=== PATIENT | male | born 1965 | race Caucasian/White ===

== ENCOUNTER 2016-10-22 17:26 | Inpatient (IN) | payer SELFPAY ==
[~2016-10-22] VITALS: Ht 180.3 cm; Wt 90.3 kg
[2016-10-22] MEDS ORDERED: FUROSEMIDE 40 MG/4 ML VIAL ONE (17:42)
[2016-10-22] MEDS ORDERED: NITROGLYCERIN PACKET 1 GM PACKET ONE ×2 (17:42)
[2016-10-22] MEDS ORDERED: ASPIRIN 325 MG TABLET ONE (17:42)
[2016-10-22 17:59] LABS: BASOPHILS % (AUTO) 0.3 % (0.0-2.0); DIFF TOTAL % 100 %; EOSINOPHILS % (AUTO) 0.2 % (0.0-6.0); HEMATOCRIT 37 % (39-51); HEMOGLOBIN 11.6 g/dL (13.5-17.5); LYMPHOCYTES # (AUTO) 1.3 /CMM (0.8-4.8); LYMPHOCYTES % (AUTO) 16.8 % (20.0-44.0); MEAN CORPUSCULAR HEMOGLOBIN 27 PG (26.0-33.0); MEAN CORPUSCULAR HGB CONC 31 g/dl (31.0-36.0); MEAN CORPUSCULAR VOLUME 87 fL (80-96); MONOCYTES # (AUTO) 0.8 /CMM (0.1-1.30); MONOCYTES % (AUTO) 10.4 % (2.0-12.0); NEUTROPHILS # (AUTO) 5.5 /CMM (1.8-8.9); NEUTROPHILS % (AUTO) 72.3 % (43.0-81.0); PLATELET COUNT (AUTO) 328 /CMM (150-450); RED BLOOD CELL COUNT(AUTO) 4.27 MIL/uL (4.5-6.0); WHITE BLOOD COUNT (AUTO) 7.7 K/uL (4.3-11.0)
[2016-10-22] MEDS ORDERED: ASPIRIN 325 MG TABLET PO ONE (18:00)
[2016-10-22] MEDS ORDERED: NITROGLYCERIN PACKET 1 GM PACKET TD ONE (18:00)
[2016-10-22] MEDS ORDERED: FUROSEMIDE 40 MG/4 ML VIAL IV ONE (18:00)
[2016-10-22 18:09] LABS: CALCIUM, SERUM 8.6 mg/dL (8.5-10.1); CREATININE 1.5 mg/dL (0.6-1.3); POTASSIUM 4.6 mmol/L (3.5-5.1)
[2016-10-22 18:17] LABS: TROPONIN I 0.129 ng/mL (0.00-0.056)
[2016-10-22 18:20] LABS: INR 1.24 (0.87-1.13); PROTHROMBIN TIME 13.4 SECS (9.5-12.7)
[2016-10-22 18:23] LABS: ALBUMIN 2.7 g/dL (3.4-5.0); BILIRUBIN,DIRECT 0.7 mg/dL (0.0-0.2); INDIRECT BILIRUBIN 0.3 mg/dL (0.0-1.1); TOTAL PROTEIN, SERUM 7.7 g/dL (6.4-8.2)
[2016-10-22] MEDS ORDERED: VANCOMYCIN 1 GM in IV D5W 250 ML IV ONE ×2 (18:30→19:30)
[2016-10-22] MEDS ORDERED: CEFEPIME 1 GM VIAL IV ONE (18:30)
[2016-10-22] MEDS ORDERED: CEFEPIME 2 GM in IV D5W 100 ML IV ONE (19:00)
[2016-10-22 19:24] LABS: LACTIC ACID 2.1 mmol/L (0.4-2.0)
[2016-10-22] MEDS: IPRATROPIUM NEB FS 0.5 MG/2.5 ML AMPUL.NEB NEB SCH (19:30)
[2016-10-22] MEDS ORDERED: ONDANSETRON HCL/PF 4 MG/2 ML VIAL IVP PRN (19:30)
[2016-10-22] MEDS: ALBUTEROL FS 2.5 MG/0.5 ML VIAL.NEB NEB SCH (19:30)
[2016-10-22] MEDS ORDERED: ACETAMINOPHEN 325 MG TABLET PO PRN ×2 (19:30)
[2016-10-22] MEDS: FUROSEMIDE 40 MG/4 ML VIAL IV SCH (19:30)
[2016-10-22 19:31] LABS: *LACTIC ACID REFLEX FLAG YES
[2016-10-22 19:37] LABS: IRON, SERUM 93 ug/dl (50-175); PERCENT SATURATION 23 % (14-33); TOTAL IRON BINDING CAPACITY 408 ug/dl (250-450)
[2016-10-22 20:00] VITALS: BP 144/95
[2016-10-22 20:44] LABS: ABG BASE EXCESS 1.2 mmol/L; ABG HCO3 25.5 mmol/L; ABG PCO2 39.1 mmHg (35.0-45.0); ABG PH 7.432 (7.350-7.450); ABG PO2 85.3 mmHg (75.0-100.0); ABG TOTAL HEMOGLOBIN 12.2 G/dL (13.5-18.0); ALLEN TEST Pass; AaDO2 17.6 mmHg; O2Hb 93.3 % (94.0-97.0)
[2016-10-22 20:52] LABS: KETONES,URINE NEGATIVE (NEGATIVE); LEUKOCYTE ESTERASE ,URINE NEGATIVE (NEGATIVE); PH,URINE 5.5 (5.0-8.0)
[2016-10-22 21:05] LABS: ADD UA MICROSCOPIC YES
[2016-10-22 21:07] LABS: ADD URINE CULTURE NO; MUCUS,URINE Many /LPF (None Seen); RBC,URINE 0-2 /HPF (0-2); WBC,URINE 0-2 /HPF (0-3)
[2016-10-22] MEDS ORDERED: LORAZEPAM INJ 2 MG/ML VIAL ONE (21:46)
[2016-10-22] MEDS: LORAZEPAM INJ 2 MG/ML VIAL IVP PRN (21:51)
[2016-10-23] VITALS (9 sets, daily range): BP systolic 114–144; BP diastolic 72–87
[2016-10-23] MEDS ORDERED: PIPERACILLIN /TAZOBACTAM 3.375 G VIAL IV ONE ×2 (00:14→04:41)
[2016-10-23] MEDS ORDERED: methylPREDNISolone SOD SUCC 40 MG/ML VIAL ONE ×2 (00:14→04:41)
[2016-10-23] MEDS ORDERED: IV D5W 50 ML IV ONE ×2 (00:14→04:42)
[2016-10-23] MEDS ORDERED: SECONDARY IV SET 1 EA INFUS.SET MC ONE ×5 (00:15→21:46)
[2016-10-23] MEDS ORDERED: IV NS 0.9% 250 ML IV ONE (00:15)
[2016-10-23] MEDS: methylPREDNISolone SOD SUCC 125 MG/2ML VIAL IV SCH ×5 (00:28→23:24)
[2016-10-23] MEDS: PIPERACILLIN /TAZOBACTAM 3.375 G in IV D5W 50 ML IV SCH ×5 (00:28→23:25)
[2016-10-23] MEDS: IPRATROPIUM NEB FS 0.5 MG/2.5 ML AMPUL.NEB NEB SCH ×4 (03:33→20:47)
[2016-10-23] MEDS: ALBUTEROL FS 2.5 MG/0.5 ML VIAL.NEB NEB SCH ×4 (03:33→20:46)
[2016-10-23 07:29] LABS: ALBUMIN 2.4 g/dL (3.4-5.0); CALCIUM, SERUM 8.2 mg/dL (8.5-10.1); CREATININE 1.5 mg/dL (0.6-1.3); DIFF TOTAL % 100 %; EOSINOPHILS % (AUTO) 0.1 % (0.0-6.0); HEMATOCRIT 35 % (39-51); HEMOGLOBIN 11.3 g/dL (13.5-17.5); LYMPHOCYTES # (AUTO) 0.8 /CMM (0.8-4.8); MEAN CORPUSCULAR HEMOGLOBIN 28 PG (26.0-33.0); MEAN CORPUSCULAR HGB CONC 32 g/dl (31.0-36.0); MEAN CORPUSCULAR VOLUME 87 fL (80-96); MONOCYTES # (AUTO) 0.2 /CMM (0.1-1.30); NEUTROPHILS # (AUTO) 7.5 /CMM (1.8-8.9); NEUTROPHILS % (AUTO) 87.9 % (43.0-81.0); PHOSPHORUS 2.8 mg/dL (2.5-4.9); PLATELET COUNT (AUTO) 317 /CMM (150-450); POTASSIUM 4.2 mmol/L (3.5-5.1); RED BLOOD CELL COUNT(AUTO) 4.01 MIL/uL (4.5-6.0); TOTAL PROTEIN, SERUM 7.2 g/dL (6.4-8.2); WHITE BLOOD COUNT (AUTO) 8.5 K/uL (4.3-11.0)
[2016-10-23 07:36] LABS: CHOLESTEROL 125 mg/dL (<200); HDL CHOLESTEROL 64 mg/dL (40-60); LDL 48 mg/dL (0-99); TRIGLYCERIDES 69 mg/dL (30-150)
[2016-10-23] MEDS: PANTOPRAZOLE 40 MG TABLET.DR PO SCH (08:51)
[2016-10-23] MEDS: NICOTINE PATCH (21MG) 21 MG PATCH.TD24 TD SCH (08:51)
[2016-10-23] MEDS: FUROSEMIDE 40 MG/4 ML VIAL IV SCH ×2 (08:51→17:08)
[2016-10-23] MEDS: LORAZEPAM INJ 2 MG/ML VIAL IVP PRN ×2 (09:56→21:37)
[2016-10-23] MEDS: VANCOMYCIN 1 GM in IV D5W 250 ML IV SCH ×2 (10:03→21:36)
[2016-10-23] MEDS ORDERED: Magnesium 1GM/D5W 100ML PREMIX 100 ML IV SCH (10:53)
[2016-10-23] MEDS: ASPIRIN 81 MG TAB.CHEW PO SCH (12:20)
[2016-10-23] MEDS ORDERED: NALOXONE HCL 0.4 MG/ML AMPUL IV PRN (12:30)
[2016-10-23] MEDS ORDERED: diphenhydrAMINE HCL 50 MG/ML VIAL IM PRN (13:00)
[2016-10-23] MEDS ORDERED: IV D5/ 0.9% NACL 1,000 ML IV PRN (13:30)
[2016-10-23] MEDS ORDERED: IV SET PRIMARY PUMP SET 1 EA INFUS.SET MC ONE (14:02)
[2016-10-23] MEDS: Thiamine 100 MG in IV D5W 50 ML IV SCH (14:02)
[2016-10-23] MEDS: Folic acid 1 MG in IV D5W 50 ML IV SCH (15:29)
[2016-10-23] MEDS: ATORVASTATIN 10 MG TABLET PO SCH (21:37)
[2016-10-23] MEDS ORDERED: ATORVASTATIN 40 MG TABLET PO SCH (22:00)
[2016-10-23] MEDS: GUAIFENESIN/CODEINE 10 ML UDC PO PRN (23:28)
[2016-10-24] MEDS: ALBUTEROL FS 2.5 MG/0.5 ML VIAL.NEB NEB SCH ×4 (01:56→19:45)
[2016-10-24] MEDS: IPRATROPIUM NEB FS 0.5 MG/2.5 ML AMPUL.NEB NEB SCH ×4 (01:57→19:45)
[2016-10-24] MEDS: methylPREDNISolone SOD SUCC 125 MG/2ML VIAL IV SCH ×3 (05:49→17:16)
[2016-10-24] MEDS: PIPERACILLIN /TAZOBACTAM 3.375 G in IV D5W 50 ML IV SCH ×3 (05:49→17:16)
[2016-10-24 08:00] VITALS: BP 121/90
[2016-10-24 08:03] VITALS: BP 121/90
[2016-10-24 08:27] LABS: BASOPHILS % (AUTO) 0.2 % (0.0-2.0); DIFF TOTAL % 100 %; EOSINOPHILS % (AUTO) 0.1 % (0.0-6.0); HEMATOCRIT 33 % (39-51); HEMOGLOBIN 10.6 g/dL (13.5-17.5); LYMPHOCYTES # (AUTO) 0.7 /CMM (0.8-4.8); MEAN CORPUSCULAR HEMOGLOBIN 28 PG (26.0-33.0); MEAN CORPUSCULAR HGB CONC 32 g/dl (31.0-36.0); MEAN CORPUSCULAR VOLUME 88 fL (80-96); MONOCYTES # (AUTO) 0.4 /CMM (0.1-1.30); MONOCYTES % (AUTO) 2.7 % (2.0-12.0); NEUTROPHILS # (AUTO) 12.6 /CMM (1.8-8.9); PLATELET COUNT (AUTO) 319 /CMM (150-450); RED BLOOD CELL COUNT(AUTO) 3.82 MIL/uL (4.5-6.0); WHITE BLOOD COUNT (AUTO) 13.7 K/uL (4.3-11.0)
[2016-10-24] MEDS: PANTOPRAZOLE 40 MG TABLET.DR PO SCH (08:28)
[2016-10-24] MEDS: FUROSEMIDE 40 MG/4 ML VIAL IV SCH ×2 (08:28→17:16)
[2016-10-24] MEDS: ASPIRIN 81 MG TAB.CHEW PO SCH (08:28)
[2016-10-24] MEDS: NICOTINE PATCH (21MG) 21 MG PATCH.TD24 TD SCH (08:28)
[2016-10-24 08:31] LABS: CALCIUM, SERUM 7.9 mg/dL (8.5-10.1); CREATININE 1.5 mg/dL (0.6-1.3); PHOSPHORUS 3.1 mg/dL (2.5-4.9); POTASSIUM 4.2 mmol/L (3.5-5.1)
[2016-10-24] MEDS: VANCOMYCIN 1 GM in IV D5W 250 ML IV SCH (08:37)
[2016-10-24] MEDS: Folic acid 1 MG in IV D5W 50 ML IV SCH (13:08)
[2016-10-24 13:12] LABS: ANISOCYTOSIS 1+; HYPOCHROMASIA 1+; PLATELET ESTIMATE ADEQUATE
[2016-10-24] MEDS: Thiamine 100 MG in IV D5W 50 ML IV SCH (14:05)
[2016-10-24 14:21] LABS: HEPATITIS C VIRUS AB >11.0 s/co ratio (0.0-0.9)
[2016-10-24] MEDS ORDERED: FEE PK DOSING 1 MIN EA MC ONE (15:33)
[2016-10-24 16:00] VITALS: BP 139/83
[2016-10-24] MEDS ORDERED: SECONDARY IV SET 1 EA INFUS.SET MC ONE (17:12)
[2016-10-24] MEDS: LORAZEPAM INJ 2 MG/ML VIAL IVP PRN ×2 (17:19→23:22)
[2016-10-24 19:53] VITALS: BP 149/97
[2016-10-24 20:24] VITALS: BP 149/97
[2016-10-24] MEDS: BENZTROPINE MESYLATE (1 MG) 1 MG TABLET PO SCH (21:49)
[2016-10-24] MEDS: VANCOMYCIN 1.25 GM in IV D5W 500 ML IV SCH (21:49)
[2016-10-24] MEDS: ATORVASTATIN 10 MG TABLET PO SCH (21:50)
[2016-10-24] MEDS: HALOPERIDOL 5 MG TABLET PO SCH (21:50)
[2016-10-25] MEDS: PIPERACILLIN /TAZOBACTAM 3.375 G in IV D5W 50 ML IV SCH ×2 (00:31→05:59)
[2016-10-25] MEDS: methylPREDNISolone SOD SUCC 125 MG/2ML VIAL IV SCH ×2 (00:31→05:59)
[2016-10-25] MEDS: ALBUTEROL FS 2.5 MG/0.5 ML VIAL.NEB NEB SCH ×2 (01:30→07:31)
[2016-10-25] MEDS: IPRATROPIUM NEB FS 0.5 MG/2.5 ML AMPUL.NEB NEB SCH ×2 (01:30→07:31)
[2016-10-25] MEDS: GUAIFENESIN/CODEINE 10 ML UDC PO PRN ×2 (03:15→09:02)
[2016-10-25] MEDS ORDERED: IV SET PRIMARY PUMP SET 1 EA INFUS.SET MC ONE (06:19)
[2016-10-25 08:11] LABS: HEPATITIS Be AG Negative (Negative)
[2016-10-25] MEDS: NICOTINE PATCH (21MG) 21 MG PATCH.TD24 TD SCH (09:00)
[2016-10-25] MEDS: VANCOMYCIN 1.25 GM in IV D5W 500 ML IV SCH (09:00)
[2016-10-25] MEDS: HALOPERIDOL 5 MG TABLET PO SCH (09:03)
[2016-10-25] MEDS: BENZTROPINE MESYLATE (1 MG) 1 MG TABLET PO SCH (09:03)
[2016-10-25] MEDS: FUROSEMIDE 40 MG/4 ML VIAL IV SCH (09:03)
[2016-10-25] MEDS: PANTOPRAZOLE 40 MG TABLET.DR PO SCH (09:03)
[2016-10-25] MEDS: ASPIRIN 81 MG TAB.CHEW PO SCH (09:03)
[2016-10-25 11:11] LABS: HEPATITIS Be AB Negative (Negative)
[2016-10-26 22:16] LABS: *HCV QT LOG10 6.655 (.); *HCV QUANT 4518840 IU/mL (.)
== END 2016-10-25 09:40 | disposition left against medical advice (07) | DRG 871 ==
LOC: ER 17:29 → TELE 18:26 → MEDSG2 10-23 12:45
PROVIDERS: ADMIT Internal Medicine; ATTEND Internal Medicine
DX: A41.9 Sepsis, unspecified organism (principal); I21.4 Non-ST elevation (NSTEMI) myocardial infarction; N17.0 Acute kidney failure with tubular necrosis; J69.0 Pneumonitis due to inhalation of food and vomit; I50.23 Acute on chronic systolic (congestive) heart failure; E44.0 Moderate protein-calorie malnutrition; J44.1 Chronic obstructive pulmonary disease with (acute) exacerbation; J44.0 Chronic obstructive pulmonary disease with (acute) lower respiratory infection; I42.9 Cardiomyopathy, unspecified; R18.8 Other ascites; F17.210 Nicotine dependence, cigarettes, uncomplicated; F20.9 Schizophrenia, unspecified; M19.90 Unspecified osteoarthritis, unspecified site; N18.9 Chronic kidney disease, unspecified; Z96.659 Presence of unspecified artificial knee joint; Z59.0 Homelessness; F31.9 Bipolar disorder, unspecified; D63.8 Anemia in other chronic diseases classified elsewhere; R73.9 Hyperglycemia, unspecified; B19.20 Unspecified viral hepatitis C without hepatic coma; Z68.27 Body mass index [BMI] 27.0-27.9, adult
CPT/HCPCS: 36415; 36600; 71010-TC; 76700-TC; 80048-TC; 80053-TC; 80061-TC; 80074; 80076-TC; 80202-TC; 81000-TC; 82272-TC; 82803-TC; 83540-TC; 83605-TC; 83735-TC; 83880; 84100-TC; 84484-TC; 85025-TC; 85730-TC; 86704; 86706; 86707; 86709-TC; 87040-TC; 87070-TC; 87081-TC; 87086-TC; 87340; 87350; 93307-TC; 94799-TC; A4606; J0692; J1940; J2060; J2543; J2920; J2930; J3370; J3411; J3475; J3490; J7042; J7050; J7060; Z7610

== ENCOUNTER 2016-10-31 14:00 | Emergency (ER) | payer MEDICAID ==
[~2016-10-31] VITALS: Ht 172.7 cm; Wt 95.3 kg
[2016-10-31 14:04] VITALS: BP 154/81
[2016-10-31] MEDS ORDERED: ACETAMINOPHEN 325 MG TABLET PO ONE (15:00)
[2016-10-31] MEDS ORDERED: ACETAMINOPHEN 325 MG TABLET ONE (15:33)
[2016-10-31 17:28] LABS: KETONES,URINE TRACE (NEGATIVE); LEUKOCYTE ESTERASE ,URINE NEGATIVE (NEGATIVE); PH,URINE 5.5 (5.0-8.0)
[2016-10-31 17:29] LABS: ADD UA MICROSCOPIC YES
[2016-10-31 17:31] LABS: ADD URINE CULTURE NO; RBC,URINE 0-2 /HPF (0-2); WBC,URINE 0-2 /HPF (0-3)
== END 2016-10-31 18:08 | disposition home or self-care (01) ==
LOC: ER 14:03
DX: N43.3 Hydrocele, unspecified (principal); I10 Essential (primary) hypertension
CPT/HCPCS: 76870; 81001; 99285; A4606; Z7610; 81000-TC